=== PATIENT | female | born 1985 | race Caucasian/White ===

== ENCOUNTER 2020-02-18 12:29 | Emergency (ER) | payer MEDICAID ==
[~2020-02-18] VITALS: Ht 162.6 cm; Wt 94.7 kg
[2020-02-18 12:33] VITALS: BP 132/88
--- NOTE | 2020-02-18 13:29 | NUR ---
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
== END 2020-02-18 14:11 | disposition home or self-care (01) ==
LOC: ED 13:43
DX: G56.02 Carpal tunnel syndrome, left upper limb (principal); M17.11 Unilateral primary osteoarthritis, right knee; J45.909 Unspecified asthma, uncomplicated; Z76.0 Encounter for issue of repeat prescription; F17.200 Nicotine dependence, unspecified, uncomplicated
CPT/HCPCS: 99284